=== PATIENT | male | born 1965 | race Caucasian/White ===

== ENCOUNTER 2024-03-08 15:53 | Outpatient (AMB) | payer MEDICAID, SELFPAY ==
--- NOTE | 2024-03-08 15:50 | PD.ORTHTELE ---
Med/Allergies Allergies & Medications Allergies No Known Drug Allergies Allergy (Verified 03/08/24 15:50) Medication Reconciliation No Known Home Medications 02/27/24 [History Confirmed 03/08/24] Subjective Visit Visit for: follow up visit and knee Immunization / Flu Flu Vaccine in the Last 12 Months: Yes Flu Vaccine Exclusion Criteria: Already Received History of Present Illness Chief complaint: BILATERAL KNEE INJECTION Date of injury / onset of symptoms: 3 MONTHS Patient is a pleasant 58-year-old male with 3 months of right knee pain. He fell from a branch. The right knee has been hurting him since then. He is not has significant history of treatment. He actually reports that he has tried 1 injection and anti-inflammatories.He reports the pain is affecting his quality life and happiness. He has failed cortisone and anti-inflammatories at this point Personal History Occupation: [employer] Red flag PMH: none Pain Pain level (0-10): 4 Pain duration: COMES AND GOES Pain location: inside (medial), outside (lateral), anterior and posterior Pain quality: sharp and aching Pain timing: night and increases with activity Associated signs & symptoms: numbness, weakness and stiffness Ambulatory data Ambulatory device: cane Treatments Improvement with previous injections: No Improvement with PT: No Improvement with NSAIDS: no Review of Systems Review of Systems: All systems negative unless otherwise noted in HPI. Assessment and Plan Problem List (1) Arthritis of right knee: Status: Acute Plan: Patient is a pleasant 58-year-old male with right knee pain and right knee arthritis. We discussed nonoperative and operative options. He has significant varus deformity and significant arthritis based on the x-ray. Discussed Kellgren-Duane grade 4 arthritis. He has tried 1 injection that did not help. We will try physical therapy as he has not tried that. If does not work we will likely discuss total knee replacement Office Procedures GNS Level of Care Nursing/Assessment Patient Status: Established Patient Nursing Assessment/Reassesment: Medication Reconciliation, Update PMH in EMR and Vital Signs Coordination of Care: Complex Care and Chronic Disease 1-5, Education Complex Pt/Fam, Consent,records obtained, informed consent and Staff clarify orders Special Needs: Language special needs Established Patient Charge Established Patient Point Assignment: 90 Surgical Proc/IM SQ injection Major Surgical Procedure: Yes
== END 2024-03-08 15:55 | disposition home or self-care (01) ==
LOC: HODSRG 15:53
PROVIDERS: Supervising Provider Orthopaedic Surgery Adult Reconstructive Orthopaedic Surgery; Visit Provider Orthopaedic Surgery Adult Reconstructive Orthopaedic Surgery
DX: M17.11 Unilateral primary osteoarthritis, right knee (principal); M25.561 Pain in right knee; M21.161 Varus deformity, not elsewhere classified, right knee
CPT/HCPCS: 99212; G0463